=== PATIENT | male | born 1980 | race Caucasian/White ===

== ENCOUNTER 2018-07-18 20:19 | Emergency (ER) | payer SELFPAY ==
[2018-07-18] MEDS ORDERED: Sodium Chloride 0.9% 10 ML Syringe FLUSH PRN ×2 (20:30→20:31)
[2018-07-18] MEDS ORDERED: Sodium Chloride 0.9% 1,000 ML IV ONE (20:31)
[2018-07-18] MEDS ORDERED: Ondansetron 4 MG/2 ML SDV IVPUSH ONE (20:41)
--- NOTE | 2018-07-18 20:43 | EDM.PDOC ---
ED HPI GENERAL MEDICAL PROBLEM - General Chief Complaint: Gastrointestinal Problem Stated Complaint: diarrhea, abdominal pain Time Seen by Provider: 07/18/18 20:19 Source of Information: Reports: Patient History Limitations: Reports: No Limitations - History of Present Illness INITIAL COMMENTS - FREE TEXT/NARRATIVE: Patient comes in the emergency department with complaints of abdominal discomfort and severe diarrhea. Patient states that he started having low-grade fever on Saturday (6 days ago) progressed with body aches and cough. The diarrhea he states it occurs approximately 5-6 times a day(runny/pure liquid with bright red blood noted on the toilet paper, severe abdominal cramping, nausea, and a headache. He denies having any fever the last 48 hours but states that he has a decrease in appetite for the abdominal discomfort in the severe diarrhea that occurs after eating. 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 Onset: Gradual Right Upper Abdomen Pain Score (Numeric/FACES): 7 - Related Data Allergies Allergy/AdvReac Type Severity Reaction Status Date / Time No Known Allergies Allergy Verified 07/18/18 20:24 Home Meds: Home Meds . [No Known Home Meds] 07/18/18 [History] Past Medical History - Past Health History Medical/Surgical History: Denies Medical/Surgical History Neurological History: Reports: Seizure Other Neuro History: Last seizure 7 years ago. - Past Surgical History GI Surgical History: Reports: Hernia, Abdominal Social & Family History - Tobacco Use Smoking Status *Q: Former Smoker Used Tobacco, but Quit: Yes Month/Year Tobacco Last Used: 22 years ago ED ROS GENERAL - Review of Systems Review Of Systems: See Below Constitutional: Reports: Malaise, Weakness, Fatigue, Decreased Appetite HEENT: Reports: No Symptoms Respiratory: Reports: No Symptoms Cardiovascular: Reports: No Symptoms GI/Abdominal: Reports: Abdominal Pain, Bloody Stool, Diarrhea, Decreased Appetite, Nausea Musculoskeletal: Reports: No Symptoms Skin: Reports: No Symptoms Neurological: Reports: No Symptoms Psychiatric: Reports: No Symptoms Hematologic/Lymphatic: Reports: No Symptoms Immunologic: Reports: No Symptoms ED EXAM, GENERAL - Physical Exam Exam: See Below Exam Limited By: No Limitations General Appearance: Alert, WD/WN, No Apparent Distress Respiratory/Chest: No Respiratory Distress, Lungs Clear, Normal Breath Sounds, No Accessory Muscle Use, Chest Non-Tender Cardiovascular: Normal Peripheral Pulses, Regular Rate, Rhythm, No Edema GI/Abdominal: No Mass, Guarding, Tender, Abnormal Bowel Sounds. No: Rigid Back Exam: Normal Inspection, Full Range of Motion Extremities: Normal Inspection, Normal Range of Motion, Non-Tender, Normal Capillary Refill Neurological: Alert, Oriented, Normal Cognition, Normal Gait Psychiatric: Normal Affect, Normal Mood Skin Exam: Warm, Dry, Intact, Normal Color Course - Vital Signs Last Recorded V/S: Last Vital Signs Temp 36.2 C 07/18/18 20:26 Pulse 77 07/18/18 23:08 Resp 16 07/18/18 23:08 BP 112/73 07/18/18 23:08 Pulse Ox 100 07/18/18 23:08 - Orders/Labs/Meds Orders: Active Orders 24 hr Category Date Time Status Abdomen Pelvis w Cont [CT] Stat Exams 07/18/18 21:22 Taken Abdomen Pelvis wo Cont [CT] Stat Exams 07/18/18 20:30 Taken H PYLORI STOOL ANTIGEN [MREF] Stat Lab 07/18/18 22:56 Ordered LACTOFERRIN, STOOL [OP] Stat Lab 07/18/18 22:56 Ordered MISC TEST Stat Lab 07/18/18 20:52 Ordered STOOL CULTURE/SHIGA TOXIN [MREF] Stat Lab 07/18/18 22:56 Ordered Sodium Chloride 0.9% [Saline Flush] Med 07/18/18 20:30 Active 10 ml FLUSH ASDIRECTED PRN Sodium Chloride 0.9% [Saline Flush] Med 07/18/18 20:31 Active 10 ml FLUSH ASDIRECTED PRN Peripheral IV Insertion Adult [OM.PC] Stat Oth 07/18/18 20:30 Ordered Peripheral IV Insertion Adult [OM.PC] Stat Oth 07/18/18 20:31 Ordered Medication Orders Sodium Chloride (Saline Flush) 10 ml FLUSH ASDIRECTED PRN PRN Reason: Keep Vein Open Sodium Chloride (Saline Flush) 10 ml FLUSH ASDIRECTED PRN PRN Reason: Keep Vein Open Labs: Laboratory Tests 07/18/18 07/18/18 07/18/18 Range/Units 20:50 20:50 20:50 WBC 6.5 (4.0-10.0) x10^3/uL RBC 4.58 (4.5-6.0) x10^6/uL Hgb 14.0 (14.0-18.0) g/dL Hct 41.1 (40.0-52.0) % MCV 89.7 (78.0-93.0) fL MCH 30.6 (26.0-32.0) pg MCHC 34.1 (32.0-36.0) g/dL RDW Coeff of Danya 13.2 (10.0-15.0) % Plt Count 204 (130-400) x10^3/uL Add Manual Diff Yes Neutrophils % (Manual) 51 (50-80) % Band Neutrophils % 3 (0-6) % Lymphocytes % (Manual) 21 L (25-50) % Reactive Lymphs % 8 H (0) % Monocytes % (Manual) 14 H (2-11) % Eosinophils % (Manual) 3 (0-4) % Vacuolated Monocytes Rare Smudge Cells Rare H Platelet Estimate Adequate Sodium 138 (136-145) mmol/L Potassium 4.3 (3.5-5.1) mmol/L Chloride 103 (98-107) mmol/L Carbon Dioxide 23 (21-32) mmol/L Anion Gap 16.3 (10-20) mmol/L BUN 28 H (7-18) mg/dL Creatinine 1.1 (0.70-1.30) mg/dL Est Cr Clr Drug Dosing TNP Estimated GFR (MDRD) > 60 Glucose 93 (74-106) mg/dL Calcium 8.2 L (8.5-10.1) mg/dL Corrected Calcium 9.00 (8.5-10.1) mg/dL Total Bilirubin 0.5 (0.2-1.0) mg/dL AST 27 (15-37) U/L ALT 38 (16-63) U/L Alkaline Phosphatase 96 (46-116) U/L Creatine Kinase 236 (39-308) U/L Total Protein 6.5 (6.4-8.2) g/dL Albumin 3.0 L (3.4-5.0) g/dL Globulin 3.5 Albumin/Globulin Ratio 0.86 Amylase 64 (25-115) U/L Lipase 189 (73-393) U/L Meds: Medications Generic Name Dose Route Start Last Admin Trade Name Freq PRN Reason Stop Dose Admin Sodium Chloride 10 ml 07/18/18 20:30 Saline Flush FLUSH ASDIRECTED PRN Keep Vein Open Sodium Chloride 10 ml 07/18/18 20:31 Saline Flush FLUSH ASDIRECTED PRN Keep Vein Open Discontinued Medications Generic Name Dose Route Start Last Admin Trade Name Yulissa PRN Reason Stop Dose Admin Diatrizoate Meglum/Diatrizoate Sod 10 ml 07/18/18 21:30 07/18/18 22:30 Gastrografin 37% PO 07/18/18 22:31 10 ml Q30M CHELY Administration Sodium Chloride 1,000 mls @ 1,000 mls/hr 07/18/18 20:31 07/18/18 20:55 Normal Saline IV 07/18/18 21:30 1,000 mls/hr ONETIME ONE Administration Iopamidol 100 ml 07/18/18 22:36 07/18/18 22:44 Isovue-300 (61%) IVPUSH 07/18/18 22:37 100 ml ONETIME ONE Administration Ondansetron HCl 4 mg 07/18/18 20:41 07/18/18 20:55 Zofran IVPUSH 07/18/18 20:42 4 mg ONETIME ONE Administration - Radiology Interpretation CT Results Date: 07/18/18 (pancolonic wall thickening is worst at ascending colon with pericolonic fat stranding. Large size appendix with no inflammatory changes ) - Re-Assessments/Exams Free Text/Narrative Re-Assessment/Exam: 07/19/18 00:09 Pt is feeling much better post IV fluids and zofran. VSS, patient up and ambulating in the room without assistance Departure - Departure Time of Disposition: 00:03 Disposition: Home, Self-Care 01 Condition: Fair Clinical Impression: Enteritis, Inflammation of intestines, Nausea Abdominal pain Qualifiers: Abdominal location: generalized Qualified Code(s): R10.84 - Generalized abdominal pain Diarrhea Qualifiers: Diarrhea type: infectious Qualified Code(s): A09 - Infectious gastroenteritis and colitis, unspecified - Discharge Information *PRESCRIPTION DRUG MONITORING PROGRAM REVIEWED*: Not Applicable *COPY OF PRESCRIPTION DRUG MONITORING REPORT IN PATIENT [facility]: Not Applicable Instructions: Nausea, Adult, Abdominal Pain, Adult Forms: ED Department Discharge Additional Instructions: 1. rest 2. increase your water intake 3. We will follow up with you with any positive findings from your stool sample. 4. If nausea returns or you feel weak return to the ER for re-evaluation 5. Activity and diet as tolerated 6. Call with any questions and concerns - My Orders Last 24 Hours: My Active Orders 07/18/18 20:30 Abdomen Pelvis wo Cont [CT] Stat Sodium Chloride 0.9% [Saline Flush] 10 ml FLUSH ASDIRECTED PRN Peripheral IV Insertion Adult [OM.PC] Stat 07/18/18 20:31 Sodium Chloride 0.9% [Saline Flush] 10 ml FLUSH ASDIRECTED PRN Peripheral IV Insertion Adult [OM.PC] Stat 07/18/18 20:52 MISC TEST Stat 07/18/18 21:22 Abdomen Pelvis w Cont [CT] Stat 07/18/18 22:56 H PYLORI STOOL ANTIGEN [MREF] Stat LACTOFERRIN, STOOL [OP] Stat STOOL CULTURE/SHIGA TOXIN [MREF] Stat - Assessment/Plan Last 24 Hours: My Active Orders 07/18/18 20:30 Abdomen Pelvis wo Cont [CT] Stat Sodium Chloride 0.9% [Saline Flush] 10 ml FLUSH ASDIRECTED PRN Peripheral IV Insertion Adult [OM.PC] Stat 07/18/18 20:31 Sodium Chloride 0.9% [Saline Flush] 10 ml FLUSH ASDIRECTED PRN Peripheral IV Insertion Adult [OM.PC] Stat 07/18/18 20:52 MISC TEST Stat 07/18/18 21:22 Abdomen Pelvis w Cont [CT] Stat 07/18/18 22:56 H PYLORI STOOL ANTIGEN [MREF] Stat LACTOFERRIN, STOOL [OP] Stat STOOL CULTURE/SHIGA TOXIN [MREF] Stat Assessment:: 1. Abdominal pain 2. nausea 3. diarrhea Plan: 1. labs completed in the ER- no abnormal findings 2. CT scan completed in the ER- pericolonic fat stranding recommendation IV and oral contrast recommended 3. IV fluids given in ER. Pt felt much better after 1L bolus NS. 4. Zofran given for nausea 5. Second CT completed. This was completed with oral and IV contrast- no changes in findings. 6. Consult completed with [facility] they do not normally consult with GI during specific hours and they refer call questions and transfers to hospitalist. 7. [facility] Contact. GI consult completed. His recommendation is if pt is stable he can be discharged and encourage fluids. Once stool samples return treat with appropriate antibiotics if warranted by stool results. 8. If patient begins nauseated/weak again he is advised to return to the ER for re-evaluation and further management while we await stool samples. 9. Pt's phone number is updated to ensure contact can be made. 10. All questions and concerns addressed prior to discharge
[2018-07-18 21:21] LABS: CHLORIDE,CL 103 mmol/L (98-107); SODIUM,NA 138 mmol/L (136-145)
[2018-07-18 21:25] LABS: ANION GAP 16.3 mmol/L (10-20)
[2018-07-18] MEDS: Diatrizoate Meglumine/Diatrizoate Sodium 37% 30 ML Bottle PO SCH ×3 (21:36→22:30)
[2018-07-18] MEDS ORDERED: Iopamidol 612 MG/ML 100 ML Bottle IVPUSH ONE (22:36)
--- NOTE | 2018-07-19 11:24 | CT ---
[id number] CT/CT Abdomen Pelvis W IV; [id number] CT/CT Abdomen Pelvis WO IV EXAM: ABDOMEN AND PELVIS CT WITH CONTRAST, ABDOMEN AND PELVIS CT WITHOUT CONTRAST INDICATION: Abdominal pain and indeterminate findings on the unenhanced examination. COMPARISON: None. DISCUSSION: Unenhanced images performed at 8:40 PM followed by enhanced images of the abdomen and pelvis at 10:41 PM. There is mild pancolonic wall thickening suggesting underlying colitis. No pneumatosis, bowel dilation, extraluminal fluid collection, free air or other evident complication. Evaluation of the appendix is somewhat limited by adjacent colonic inflammation, but there is no evidence of appendicitis. Left inguinal hernia repair. The liver, gallbladder, spleen, pancreas, adrenal glands, kidneys and small bowel are normal in appearance. No adenopathy. The osseous structures are unremarkable. IMPRESSION: 1. Pancolitis without radiographically evident complication. Wally Cornelius MD 07/19/18 1123 Thank you for allowing us to participate in the care of your patient.
== END 2018-07-19 00:10 | disposition home or self-care (01) ==
LOC: VM.ED 20:19
DX: A09 Infectious gastroenteritis and colitis, unspecified (principal); R10.9 Unspecified abdominal pain; Z87.891 Personal history of nicotine dependence
CPT/HCPCS: 74176; 74177; 80053; 82150; 82550; 83630; 83690; 85025; 85652; 86140; 86645; 87045; 87046; 87338; 87493; 87804; 87899; 96361; 96374; 99284; J2405; J7030; Q9963; Q9967